=== PATIENT | female | born 1960 | race Hispanic/Latino ===

== ENCOUNTER 2024-06-15 09:56 | Emergency (ER) | payer OTHER ==
[~2024-06-15] VITALS: Ht 157.5 cm; Wt 79.4 kg
[~2024-06-15 09:56] MED LIST: DICLOFENAC SOD100 MG PO; ENALAPRIL MALEA20 MG PO; HYDROCHLOROTH12.5 MG PO; LOVASTATIN40 MG PO; METFORMIN HCL500 MG PO; OMEPRAZOLE40 MG PO; PENTOXIFYLLINE400 MG PO
[2024-06-15 10:03] VITALS: PULSE 77; RESP 15; TEMP 98.4; O2SAT 98
== END 2024-06-15 11:11 | disposition home or self-care (01) ==
LOC: ER 10:00
DX: S43.492A Other sprain of left shoulder joint, initial encounter (principal); W01.0XXA Fall on same level from slipping, tripping and stumbling without subsequent striking against object, initial encounter; Y93.01 Activity, walking, marching and hiking; Y92.89 Other specified places as the place of occurrence of the external cause; I10 Essential (primary) hypertension; E11.9 Type 2 diabetes mellitus without complications; E78.5 Hyperlipidemia, unspecified
CPT/HCPCS: 99283